=== PATIENT | male | born 1980 | race Caucasian/White ===

== ENCOUNTER 2018-08-16 19:18 | Emergency (ER) | payer OTHER ==
[~2018-08-16] VITALS: Ht 190.5 cm; Wt 108.9 kg
[2018-08-16 23:39] VITALS: BP 109/70
== END 2018-08-16 23:39 | disposition home or self-care (01) ==
LOC: ED 19:18
DX: R56.9 Unspecified convulsions (principal); S93.401A Sprain of unspecified ligament of right ankle, initial encounter; S00.532A Contusion of oral cavity, initial encounter; F17.210 Nicotine dependence, cigarettes, uncomplicated; Z71.6 Tobacco abuse counseling; Z98.890 Other specified postprocedural states; Z88.0 Allergy status to penicillin; Z88.6 Allergy status to analgesic agent; Z88.5 Allergy status to narcotic agent; X58.XXXA Exposure to other specified factors, initial encounter; Y93.89 Activity, other specified; Y92.89 Other specified places as the place of occurrence of the external cause; Y99.8 Other external cause status
CPT/HCPCS: 99406; Q0092